=== PATIENT | female | born 1980 | race Caucasian/White ===

== ENCOUNTER → 2017-06-18 | Outpatient (CLI) | payer OTHER | LOC: SL 20:17 | DX: G25.81 Restless legs syndrome (principal); G47.10 Hypersomnia, unspecified; I10 Essential (primary) hypertension ==

== ENCOUNTER → 2017-06-19 | Outpatient (CLI) | payer OTHER | LOC: RT 09:41 | DX: I10 Essential (primary) hypertension (principal); R07.9 Chest pain, unspecified; I27.20 Pulmonary hypertension, unspecified ==

== ENCOUNTER → 2017-07-01 | Day surgery (SDC) | payer OTHER ==
[2017-07-01 11:29] VITALS: BP 145/84
--- NOTE | 2017-07-01 13:52 | RADIOLOGY REPORT PS360 ---
CARDIAC CATHETERIZATION DATE OF CATHETERIZATION: PROCEDURES: 1. Right heart catheterization 2. Right internal jugular vein access INDICATION FOR TEST: 1. Moderate pulmonary hypertension 2. Dyspnea 3. Abnormal echocardiogram Informed consent was obtained prior to the procedure. COMPLICATIONS: None ESTIMATED BLOOD LOSS: Less than 10 ml. TECHNIQUE: One percent lidocaine was used to anesthetize the right anterior aspect of the neck. A structural architect needle was used to identify the right internal jugular vein. Following this a larger cannulation needle was used to cannulate the right internal jugular vein and a wire was passed into the vein. Prior to the 7 [place] sheath being inserted the wire was confirmed under fluoroscopic guidance to be in the inferior vena cava. A 7 [place] sheath was introduced and a [place]-Ede catheter was floated using hemodynamic waveforms in the pulmonary artery, right ventricle , and right atrium. Saturations were obtained in the pulmonary artery and the right atrium. At the end of the procedure the patient was transferred to the postop holding area in stable condition for sheath removal. HEMODYNAMICS: Right atrial pressure is 2 mm Hg. Right ventricular pressure is 15/2 mm Hg. Pulmonary arterial pressure is 17/8 mm Hg. Pulmonary artery occlusion pressure is 7 mm Hg. SATURATIONS: RA is 84 %. PA is 81 %. IMPRESSION: 1. Normal cardiopulmonary filling pressures 2. No evidence of pulmonary hypertension PLAN: 1. Evaluation of noncardiac pulmonary dyspnea
--- NOTE | 2017-07-01 13:52 | RADIOLOGY REPORT PS360 ---
CARDIAC CATHETERIZATION DATE OF CATHETERIZATION: PROCEDURES: 1. Right heart catheterization 2. Right internal jugular vein access INDICATION FOR TEST: 1. Moderate pulmonary hypertension 2. Dyspnea 3. Abnormal echocardiogram Informed consent was obtained prior to the procedure. COMPLICATIONS: None ESTIMATED BLOOD LOSS: Less than 10 ml. TECHNIQUE: One percent lidocaine was used to anesthetize the right anterior aspect of the neck. A food preservation scientist needle was used to identify the right internal jugular vein. Following this a larger cannulation needle was used to cannulate the right internal jugular vein and a wire was passed into the vein. Prior to the 7 [place] sheath being inserted the wire was confirmed under fluoroscopic guidance to be in the inferior vena cava. A 7 [place] sheath was introduced and a [place]-Ede catheter was floated using hemodynamic waveforms in the pulmonary artery, right ventricle , and right atrium. Saturations were obtained in the pulmonary artery and the right atrium. At the end of the procedure the patient was transferred to the postop holding area in stable condition for sheath removal. HEMODYNAMICS: Right atrial pressure is 2 mm Hg. Right ventricular pressure is 15/2 mm Hg. Pulmonary arterial pressure is 17/8 mm Hg. Pulmonary artery occlusion pressure is 7 mm Hg. SATURATIONS: RA is 84 %. PA is 81 %. IMPRESSION: 1. Normal cardiopulmonary filling pressures 2. No evidence of pulmonary hypertension PLAN: 1. Evaluation of noncardiac pulmonary dyspnea
[2017-07-01 14:17] LABS: ARTERIAL O2 SAT CATH LAB 84.4 % (90-100); VENOUS O2 SAT CATH LAB 81.4 % (75-80)
== END ==
LOC: CATHLAB 07:09
PROVIDERS: Internal Medicine
PROC: 4A023N6 Measurement of Cardiac Sampling and Pressure, Right Heart, Percutaneous Approach (ICD-10-PCS; principal; 2017-07-01 08:30)
DX: I27.20 Pulmonary hypertension, unspecified (principal); R93.1 Abnormal findings on diagnostic imaging of heart and coronary circulation; R06.02 Shortness of breath
CPT/HCPCS: C1894; J1644